=== PATIENT | male | born 1990 | race African-American/Black ===

== ENCOUNTER 2018-03-18 11:11 | Emergency (ER) | payer MEDICAID ==
[~2018-03-18] VITALS: Ht 177.8 cm; Wt 75.0 kg
[2018-03-18 11:28] VITALS: BP 148/85
== END 2018-03-18 13:27 | disposition left against medical advice (07) ==
LOC: ER 13:02
DX: Z53.21 Procedure and treatment not carried out due to patient leaving prior to being seen by health care provider (principal)